=== PATIENT | male | born 1995 | race Caucasian/White ===

== ENCOUNTER 2017-01-08 17:10 | Emergency (ER) | payer SELFPAY ==
[~2017-01-08] VITALS: Ht 172.7 cm; Wt 68.0 kg
[2017-01-08 17:27] VITALS: Ht 172.7 cm; Wt 68.0 kg
[2017-01-08] MEDS ORDERED: HYDROCODONE/APAP (5/325) TAB PO ONE (19:00)
[2017-01-08] MEDS ORDERED: IBUPROFEN 600 MG TAB PO ONE (19:00)
--- NOTE | 2017-01-08 19:00 | RADRPT ---
PROCEDURE: Chest x-ray CLINICAL INDICATION: Chest wall pain TECHNIQUE: Chest single view COMPARISON: None FINDINGS: The heart is normal in size. The pulmonary vessels are normal in caliber. The lungs are clear. Th e costophrenic angles are sharp. The visualized bony thorax is unremarkable. IMPRESSION: No acute cardiopulmonary disease. No evidence of pneumothorax RPTAT: HH .Qamar Love MD, Date Time Electronically viewed and signed by .Qamar Love MD, MD on 01/08/2017 18:59 .W/
[2017-01-08] MEDS ORDERED: IBUP-1542 PO (19:14)
[2017-01-08] MEDS ORDERED: HYDR-906 PO (19:14)
--- NOTE | 2017-01-08 19:18 | ERD ---
ER Documentation Chief Complaint Date/Time DATE: 01/08/17 TIME: 19:17 Chief Complaint RIGHT SIDED CHEST PAIN X 4 DAYS HPI This 21-year-old male complains of right-sided chest wall pain for last 4 days. It started with lifting at work and worsened by coughing. Denies any hemoptysis, shortness breath, fevers, calf swelling. Denies any sustained anterior chest pain. ROS All systems reviewed and are negative except as per history of present illness. Medications Home Meds Active Scripts Hydrocodone/Acetaminophen ([place] 5-325 Tablet) 1 Each Tablet, 1 TAB PO Q6H Y for PAIN, #15 TAB Prov:AAYUSH HUBER MD 01/08/17 Ibuprofen* (Motrin*) 600 Mg Tab, 600 MG PO Q6, #20 TAB Prov:AAYUSH HUBER MD 01/08/17 Allergies Allergies: Coded Allergies: No Known Allergy (Unverified , 01/08/17) PMhx/Soc Medical and Surgical Hx: pt denies Medical Hx History of Surgery: Yes (adenoids) Hx Alcohol Use: Yes Hx Substance Use: Yes Hx Tobacco Use: Yes Smoking Status: Current every day smoker Physical Exam Vitals Vital Signs Date Time Temp Pulse Resp B/P Pulse Ox O2 Delivery O2 Flow Rate FiO2 01/08/17 17:27 98.5 64 18 123/68 100 Physical Exam Const: [] Alert, not ill-appearing. Head: Atraumatic Eyes: Normal Conjunctiva ENT: Normal External Ears, Nose and Mouth. Neck: Full range of motion..~ No meningismus. Resp: Clear to auscultation bilaterally Cardio: Regular rate and rhythm, no murmurs. Some tenderness in the right chest wall mildly with no crepitus, deformities, skin changes. Abd: Soft, non tender, non distended. Normal bowel sounds Skin: No petechiae or rashes Back: No midline or flank tenderness Ext: No cyanosis, or edema. There is no calf swelling Homans sign. Neur: Awake and alert Psych: Normal Mood and Affect Results 24 hrs Current Medications Medications (Trade) Dose Ordered Sig/Penelope Route PRN Reason Start Time Stop Time Status Last Admin Dose Admin Acetaminophen/ Hydrocodone Bitart ([place] (5/325)) 1 tab ONCE ONCE PO 01/08/17 19:00 5/11/17 19:01 DC Ibuprofen (Motrin) 600 mg ONCE ONCE PO 01/08/17 19:00 01/08/17 19:01 DC Procedures/MDM EKG: Rate/Rhythm: [Normal Sinus Rhythm] rate equals 67 QRS, ST, T-waves: [No changes consistent w/ acute ischemia] Impression: [No evidence of ischemia or arrhythmia]. Impression abnormal EKG Chest X-ray 1V Interpreted by me: Soft Tissue: No acute abnormalities Bones: No acute abnormalities Mediastinum/Cardiac Silhouette/Lungs: [No acute abnormalities]. Impression have a normal 1 view chest x-ray Patient is given ibuprofen 600 mg of mouth and [place] 5 mg by mouth. Patient has right-sided chest wall pain appears to be exacerbated by lifting and coughing. There is no signs or symptoms to suggest pneumonia, acute coronary syndrome patient as well as criteria of 0 and doubt PE. He was treated with a short course of [place] and ibuprofen and further observation at home. The patient was stable with no new complaints during the ER course. Clinically, there is no current evidence to suggest meningitis, sepsis, acute abdomen, pneumonia, acute coronary syndrome, pulmonary embolism, or any other emergent condition appearing to require further evaluation or hospitalization. The patient should certainly return for any new or worsening symptoms per the aftercare instructions. They should otherwise follow-up with her primary care doctor for reevaluation this week. Departure Diagnosis: Primary Impression: Chest pain Chest pain type: chest pain on breathing Qualified Code: R07.1 - Chest pain on breathing Condition: Stable Patient Instructions: Chest Wall Strain Additional Instructions: EKG and x-ray normal. Likely chest wall strain. Recheck for new or worsening symptoms -fever or blood, new worsening symptoms or primary care doctor. AAYUSH HUBER MD January 08, 2017 19:18
== END 2017-01-08 19:38 | disposition home or self-care (01) ==
LOC: FTE 17:10
DX: R07.1 Chest pain on breathing (principal); F17.210 Nicotine dependence, cigarettes, uncomplicated
CPT/HCPCS: 71010; 93005

== ENCOUNTER 2017-12-26 14:38 | Emergency (ER) | END 2017-12-26 16:30 | disposition home or self-care (01) ==

== ENCOUNTER 2018-02-02 01:48 | Emergency (ER) | END 2018-02-02 02:58 | disposition home or self-care (01) ==

== ENCOUNTER 2018-05-16 15:07 | Emergency (ER) | END 2018-05-16 17:37 | disposition home or self-care (01) ==